=== PATIENT | female | born 2000 | race African-American/Black ===

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

== ENCOUNTER 2023-03-05 16:16 | Emergency (ER) | payer OTHER ==
[2023-03-05 16:32] VITALS: RESP 18; BMI 22.8
[2023-03-05] MEDS ORDERED: IBUPROFEN 600 MG TABLET (FP) PO ONE ×2 (17:46→17:52)
[2023-03-05 18:58] VITALS: BP 109/70; PULSE 70; TEMP 98.5
== END 2023-03-05 18:50 | disposition home or self-care (01) ==
LOC: JER 16:16
DX: J06.9 Acute upper respiratory infection, unspecified (principal); B34.9 Viral infection, unspecified; R05.9 Cough, unspecified; R09.81 Nasal congestion; M79.10 Myalgia, unspecified site; R50.9 Fever, unspecified; R07.9 Chest pain, unspecified; Z20.822 Contact with and (suspected) exposure to COVID-19
CPT/HCPCS: 0241U-QW; 71046-TC-FY; 93005; 93010; 99285-25